=== PATIENT | female | born 1965 ===

== ENCOUNTER 2019-08-02 20:59 | Emergency (ER) | payer BC ==
[~2019-08-02] VITALS: Ht 177.8 cm; Wt 150.0 kg
[2019-08-02] MEDS: MORPHINE SULFATE 4 MG/ML CPJ (NOT FOR IM USE) IV ONE (23:30)
[2019-08-02] MEDS: KETOROLAC 30MG/ML VIAL IM ONE (23:32)
[2019-08-03] MEDS: ETOMIDATE 2MG/ML 10ML VIAL IV ONE (03:32)
[2019-08-03] MEDS: MORPHINE SULFATE 4 MG/ML CPJ (NOT FOR IM USE) IV ONE (04:18)
[2019-08-03 06:07] VITALS: BP 164/84
== END 2019-08-03 06:36 | disposition home or self-care (01) ==
LOC: ER 20:59
DX: S42.392A Other fracture of shaft of left humerus, initial encounter for closed fracture (principal); W01.0XXA Fall on same level from slipping, tripping and stumbling without subsequent striking against object, initial encounter; Y93.89 Activity, other specified; Y92.89 Other specified places as the place of occurrence of the external cause; Y99.8 Other external cause status; F17.290 Nicotine dependence, other tobacco product, uncomplicated; E11.9 Type 2 diabetes mellitus without complications; I10 Essential (primary) hypertension; Z90.49 Acquired absence of other specified parts of digestive tract; Z88.0 Allergy status to penicillin
CPT/HCPCS: 24500; 73030; 73060; 73070; 73100; 96372; 96374; 96376; 99152; 99285; 99406; A4565; J1885; J2270; J3490